=== PATIENT | male | born 1935 | race Caucasian/White ===

== ENCOUNTER → 2017-07-24 | Outpatient (CLI) | payer MEDICARE | END | disposition home or self-care (01) | LOC: PCVCCLINIC 13:55 | PROVIDERS: ATTEND Internal Medicine Cardiovascular Disease | DX: I25.10 Atherosclerotic heart disease of native coronary artery without angina pectoris (principal); I48.0 Paroxysmal atrial fibrillation; E78.4 Other hyperlipidemia; I10 Essential (primary) hypertension; R09.89 Other specified symptoms and signs involving the circulatory and respiratory systems; E11.8 Type 2 diabetes mellitus with unspecified complications; Z95.1 Presence of aortocoronary bypass graft; Z85.850 Personal history of malignant neoplasm of thyroid; Z95.5 Presence of coronary angioplasty implant and graft; Z79.82 Long term (current) use of aspirin; Z79.899 Other long term (current) drug therapy; Z88.8 Allergy status to other drugs, medicaments and biological substances | CPT/HCPCS: 80061; 93005; G0463 ==

== ENCOUNTER → 2018-07-11 | Outpatient (CLI) | payer MEDICARE | END | disposition home or self-care (01) | LOC: PCVCCLINIC 12:49 | PROVIDERS: ATTEND Internal Medicine Cardiovascular Disease | DX: I48.0 Paroxysmal atrial fibrillation (principal); I25.10 Atherosclerotic heart disease of native coronary artery without angina pectoris; I10 Essential (primary) hypertension; Z95.1 Presence of aortocoronary bypass graft; Z79.82 Long term (current) use of aspirin | CPT/HCPCS: 93005; G0463 ==

== ENCOUNTER → 2018-07-23 | Outpatient (CLI) | payer MEDICARE | END | disposition home or self-care (01) | LOC: PCVCCLINIC 14:55 | PROVIDERS: ATTEND Internal Medicine Cardiovascular Disease | DX: I25.810 Atherosclerosis of coronary artery bypass graft(s) without angina pectoris (principal); I48.0 Paroxysmal atrial fibrillation; E78.5 Hyperlipidemia, unspecified; R94.31 Abnormal electrocardiogram [ECG] [EKG]; I10 Essential (primary) hypertension; I77.9 Disorder of arteries and arterioles, unspecified; I70.1 Atherosclerosis of renal artery; Z95.1 Presence of aortocoronary bypass graft; Z88.8 Allergy status to other drugs, medicaments and biological substances; Z79.82 Long term (current) use of aspirin | CPT/HCPCS: 80061; 93005; G0463 ==

== ENCOUNTER → 2018-10-17 | Outpatient (CLI) | payer MEDICARE ==
--- NOTE | 2018-10-17 12:05 | PCVCIMAG ---
APPROVED REPORT Study performed: 10/17/2018 10:35:55 EXAM: Comprehensive 2D, Doppler, and color-flow Echocardiogram Patient Location: Echo lab Room #: 2Status: routine BSA: 2.10 HR: 78 bpmBP: 150/88 mmHg Rhythm: Atrial Fibrillation Other Information Study Quality: Good Risk Factors: Cardiac Risk Factors: HTN, Hyperlipidemia, DM Indications Atrial Fibrillation CAD S/P CABG,STENTS 2D Dimensions IVSd: 10.23 (7-11mm)LVOT Diam: 23.38 (18-24mm) LVDd: 47.76 mm PWd: 10.06 (7-11mm)Ascending Ao: 34.99 (22-36mm) LVDs: 33.27 (25-40mm) Left Atrium: 42.43 (27-40mm) Aortic Root: 28.80 mm LV Single Plane 4CH: 34.68 % LV Single Plane 2CH: 46.09 % Biplane EF: 38.3 % Volumes Left Atrial Volume (Systole) Single Plane 4CH: 116.16 mLSingle Plane 2CH: 69.42 mL Biplane LA Volume: 95.00 mLLA ESV Index: 45.00 mL/m2 Aortic Valve AoV Peak Jake.: 1.55 m/s AO Peak Gr.: 9.68 mmHgLVOT Max P.87 mmHg LVOT Max V: 0.84 m/s MARCIE Vmax: 2.33 cm2 Mitral Valve MV E Max Jake.: 0.53 m/s MV PHT: 50.99 ms MVA (PHT): 4.31 cm2 IVRT: 143.02 ms TDI E/Lateral E': 6.63E/Medial E': 5.30 Medial E' Jake.: 0.10 m/s Lateral E' Jake.: 0.08 m/s Pulmonary Valve PV Peak Jake.: 0.81 m/sPV Peak Gr.: 2.62 mmHg Tricuspid Valve TR Peak Jake.: 2.08 m/s TR Peak Gr.: 17.31 mmHg TV Vmax: 0.61 m/sPA Pressure: 24.00 mmHg Left Ventricle The left ventricle is normal size. There is global hypokinesis of the left ventricle. Paradoxical septal motion consistent with post-operative state. Borderline concentric left ventricular hypertrophy. Left ventricular systolic function is mild to moderately decreased. LVEF is 35-40%. This study is not technically sufficient to allow evaluation of the LV diastolic function due to atrial fibrillation. Right Ventricle The right ventricle is normal size. The right ventricular systolic function is normal. Atria Left atrium is moderately dilated. Right atrium is moderately dilated. Aortic Valve Aortic valve is trileaflet. Aortic valve leaflets are mildly sclerotic but open well. No aortic regurgitation is present. There is no aortic valvular stenosis. Mitral Valve The mitral valve is normal in structure. Mild to moderate mitral regurgitation. No evidence of mitral valve stenosis. Tricuspid Valve The tricuspid valve is normal in structure. Moderate tricuspid regurgitation. Doppler findings do not suggest pulmonary hypertension. Pulmonic Valve The pulmonary valve is normal in structure. There is no pulmonic valvular regurgitation. Great Vessels The aortic root is normal in size. The ascending aorta is normal in size. Aortic arch is normal in caliber. IVC is normal in size and collapses >50% with inspiration. Pericardium There is no pericardial effusion. There is no pleural effusion. <Conclusion> The left ventricle is normal size. Left ventricular systolic function is mild to moderately decreased. There is global hypokinesis of the left ventricle. Paradoxical septal motion consistent with post-operative state. LVEF is 35-40%. This study is not technically sufficient to allow evaluation of the LV diastolic function due to atrial fibrillation. The right ventricle is normal size. Left atrium is moderately dilated. Right atrium is moderately dilated. Aortic valve is trileaflet. Aortic valve leaflets are mildly sclerotic but open well. Mild to moderate mitral regurgitation. Moderate tricuspid regurgitation. Doppler findings do not suggest pulmonary hypertension. The aortic root is normal in size. There is no pericardial effusion.
== END | disposition home or self-care (01) ==
LOC: PCVCIMAG 12:27
PROVIDERS: ATTEND Internal Medicine Cardiovascular Disease
DX: I08.3 Combined rheumatic disorders of mitral, aortic and tricuspid valves (principal); I25.810 Atherosclerosis of coronary artery bypass graft(s) without angina pectoris; I48.1 Persistent atrial fibrillation; I42.9 Cardiomyopathy, unspecified; I70.1 Atherosclerosis of renal artery; I10 Essential (primary) hypertension; E78.00 Pure hypercholesterolemia, unspecified; E08.00 Diabetes mellitus due to underlying condition with hyperosmolarity without nonketotic hyperglycemic-hyperosmolar coma (NKHHC); Z79.4 Long term (current) use of insulin; Z95.1 Presence of aortocoronary bypass graft
CPT/HCPCS: 93005; 93306; G0463

== ENCOUNTER → 2019-04-21 | Outpatient (CLI) | payer MEDICARE | END | disposition home or self-care (01) | LOC: PCVCCLINIC 11:00 | PROVIDERS: ATTEND Internal Medicine Cardiovascular Disease | DX: I25.10 Atherosclerotic heart disease of native coronary artery without angina pectoris (principal); I10 Essential (primary) hypertension; E78.00 Pure hypercholesterolemia, unspecified; I70.1 Atherosclerosis of renal artery; I48.2 Chronic atrial fibrillation; I42.9 Cardiomyopathy, unspecified; Z88.8 Allergy status to other drugs, medicaments and biological substances | CPT/HCPCS: 36415; 80061; 93005; G0463 ==

== ENCOUNTER → 2019-07-16 | Outpatient (CLI) | payer MEDICARE | END | disposition home or self-care (01) | LOC: PCVCCLINIC 10:00 | PROVIDERS: ATTEND Internal Medicine Cardiovascular Disease | DX: I25.10 Atherosclerotic heart disease of native coronary artery without angina pectoris (principal); E78.00 Pure hypercholesterolemia, unspecified; R94.39 Abnormal result of other cardiovascular function study; I48.21 Permanent atrial fibrillation; I70.1 Atherosclerosis of renal artery; I10 Essential (primary) hypertension; E11.9 Type 2 diabetes mellitus without complications; E78.5 Hyperlipidemia, unspecified; Z95.1 Presence of aortocoronary bypass graft | CPT/HCPCS: 36415; 80061; 93005; G0463 ==